=== PATIENT | male | born 1965 | race Caucasian/White ===

== ENCOUNTER 2019-06-01 16:06 | Emergency (ER) | payer BC ==
[2019-06-01] MEDS ORDERED: Bacitracin Oint 1 GM U/D Packet TOP ONE (18:14)
--- NOTE | 2019-06-01 18:34 | EDM.PDOC ---
ED HPI GENERAL MEDICAL PROBLEM - General Chief Complaint: Skin Complaint Stated Complaint: FISH HOOK Time Seen by Provider: 06/01/19 18:13 Source of Information: Reports: Patient History Limitations: Reports: No Limitations - History of Present Illness INITIAL COMMENTS - FREE TEXT/NARRATIVE: chief complaint: fish hook to the left 5th finger this is a 54 year old male presents to ER with a fish hook to the left 5th finger. He was fishing today, caught a fish, got tangled with the hook. no other injury Onset: Sudden Duration: Hour(s): Location: Reports: Upper Extremity, Left (5th finger at the space between PIP and DIP joints.) Quality: Reports: Burning Severity: Mild Improves with: Reports: Immobilization Worsens with: Reports: Movement Context: Reports: Other (fish hook) Associated Symptoms: Reports: No Other Symptoms - Related Data Allergies Allergy/AdvReac Type Severity Reaction Status Date / Time No Known Allergies Allergy Verified 06/01/19 16:37 Home Meds: Home Meds Aspirin [Halfprin] 81 mg PO DAILY 06/01/19 [History] Levothyroxine 200 mcg PO ACBREAKFAST 06/01/19 [History] Lovastatin 20 mg PO WITHDINNER 06/01/19 [History] Past Medical History Cardiovascular History: Reports: Other (See Below) Other Cardiovascular History: vertigo Endocrine/Metabolic History: Reports: Hypothyroidism Social & Family History - Tobacco Use Smoking Status *Q: Never Smoker - Caffeine Use Caffeine Use: Reports: Coffee - Recreational Drug Use Recreational Drug Use: No ED ROS GENERAL - Review of Systems Review Of Systems: See Below Constitutional: Reports: No Symptoms Skin: Reports: Other (fish hook to left 5 th finger) Neurological: Reports: No Symptoms ED EXAM, SKIN/RASH Exam: See Below Exam Limited By: No Limitations General Appearance: Alert, WD/WN, No Apparent Distress Head: Atraumatic, Normocephalic Neck: Supple Respiratory/Chest: No Respiratory Distress Extremities: Normal Range of Motion, Other (fish hook noted to left 5th finger - one prong in the skin) Neurological: No Motor/Sensory Deficits Skin: Warm, Dry, Other (fish hook to the left 5th finger) Location, Skin: Upper Extremity, Left (5th finger) Characteristics: Other (f.b.) Associated features: Tenderness Lymphatic: No Adenopathy ED SKIN PROCEDURES - Foreign Body Removal Consent Obtained:: Patient Performing Doctor:: Margarette Leigh Anesthesia Type: Local Complications:: No Comments:: cleansed with shur cleanse injected with lidocaine 1% to fish hook site anesthesia obtained pushed the mark thru the skin, clipped the mark, and retracted wash hands apply bacitracin ointment and bandage skin care discussed last Td in past 2 years. Course - Vital Signs Last Recorded V/S: Last Vital Signs Temp 37.3 C 06/01/19 16:35 Pulse 73 06/01/19 16:35 Resp 16 06/01/19 16:35 BP 197/100 H 06/01/19 16:47 Pulse Ox 95 06/01/19 16:35 - Orders/Labs/Meds Meds: Medications Discontinued Medications Generic Name Dose Route Start Last Admin Trade Name Monty PRN Reason Stop Dose Admin Bacitracin 1 dose 06/01/19 18:14 06/01/19 18:22 Bacitracin Oint 1 Gm TOP 06/01/19 18:15 1 dose ONETIME ONE Administration Lidocaine HCl 5 ml 06/01/19 18:14 06/01/19 18:22 Xylocaine-Mpf 1% INJECT 06/01/19 18:15 5 ml ONETIME ONE Administration Departure - Departure Time of Disposition: 18:30 Disposition: Home, Self-Care 01 Condition: Good Clinical Impression: Fish hook injury of finger of left hand Qualifiers: Encounter type: initial encounter Qualified Code(s): S69.92XA - Unspecified injury of left wrist, hand and finger(s), initial encounter - Discharge Information *PRESCRIPTION DRUG MONITORING PROGRAM REVIEWED*: Not Applicable *COPY OF PRESCRIPTION DRUG MONITORING REPORT IN PATIENT HEMA: Not Applicable Instructions: Puncture Wound, [id number] Referrals: PCP,None [Primary Care Provider] - Forms: ED Department Discharge Care Plan Goals: Fish hook removal -keep a bandage on finger for 2 days, then keep clean and dry -monitor for signs of infection -medicate for pain with Tylenol or Motrin -return to ER for increased redness, pain, drainage, or any concerns. - Problem List & Annotations (1) Fish hook injury of finger of left hand SNOMED Code(s): 23078970 Code(s): S69.92XA - UNSP INJURY OF LEFT WRIST, HAND AND FINGER(S), INIT ENCNTR Status: Acute Priority: High Qualifiers: Encounter type: initial encounter Qualified Code(s): S69.92XA - Unspecified injury of left wrist, hand and finger(s), initial encounter - Problem List Review Problem List Initiated/Reviewed/Updated: Yes - Assessment/Plan Plan: Fish hook removal -keep a bandage on finger for 2 days, then keep clean and dry -monitor for signs of infection -medicate for pain with Tylenol or Motrin -return to ER for increased redness, pain, drainage, or any concerns.
== END 2019-06-01 18:43 | disposition home or self-care (01) ==
LOC: JP.ED 16:06
DX: S60.457A Superficial foreign body of left little finger, initial encounter (principal); E03.9 Hypothyroidism, unspecified; Z79.82 Long term (current) use of aspirin; Z79.899 Other long term (current) drug therapy; W45.8XXA Other foreign body or object entering through skin, initial encounter
CPT/HCPCS: 99282; J2001